=== PATIENT | male | born 1975 | race Caucasian/White ===

== ENCOUNTER 2017-02-21 00:58 | Emergency (ER) | payer OTHER ==
[2017-02-21] MEDS ORDERED: Diphtheria,Pertussis(Acell),Tetanus Vaccine 0.5 ML SDV IM ONE (01:26)
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
[2017-02-21] MEDS ORDERED: Bacitracin/Neomycin/Polymyxin B Oint 0.9 GM U/D Packet TOP ONE (02:08)
== END 2017-02-21 02:45 | disposition home or self-care (01) ==
LOC: LL.ED 00:58
DX: S61.011A Laceration without foreign body of right thumb without damage to nail, initial encounter (principal); S41.111A Laceration without foreign body of right upper arm, initial encounter; Z23 Encounter for immunization; X58.XXXA Exposure to other specified factors, initial encounter
CPT/HCPCS: 12002; 90471; 90715; 99282

== ENCOUNTER 2018-12-30 18:50 | Emergency (ER) | payer OTHER ==
[2018-12-30 19:22] LABS: CHLORIDE,CL 102 mmol/L (98-107); SODIUM,NA 140 mmol/L (136-145)
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
== END 2018-12-30 20:28 | disposition left against medical advice (07) ==
LOC: LL.ED 18:50
DX: S01.01XA Laceration without foreign body of scalp, initial encounter (principal); S01.312A Laceration without foreign body of left ear, initial encounter; S01.412A Laceration without foreign body of left cheek and temporomandibular area, initial encounter; F10.929 Alcohol use, unspecified with intoxication, unspecified; Y90.8 Blood alcohol level of 240 mg/100 ml or more; V28.4XXA Motorcycle driver injured in noncollision transport accident in traffic accident, initial encounter; Z53.20 Procedure and treatment not carried out because of patient's decision for unspecified reasons
CPT/HCPCS: 36415; 70450; 71045; 72125; 80053; 82150; 83605; 83690; 85025; 99285; G0480

== ENCOUNTER 2024-02-17 16:11 | Emergency (ER) | payer SELFPAY ==
[2024-02-17] MEDS: Bacitracin Oint 1 GM U/D Packet TOP ONE (16:47)
[2024-02-17] MEDS: Lidocaine 1% 5 ML VIAL INJECT ONE (16:47)
== END 2024-02-17 17:15 | disposition home or self-care (01) ==
LOC: LL.ED 16:11
DX: S61.211A Laceration without foreign body of left index finger without damage to nail, initial encounter (principal); F17.210 Nicotine dependence, cigarettes, uncomplicated; W26.8XXA Contact with other sharp object(s), not elsewhere classified, initial encounter
CPT/HCPCS: 12001; 99282; J3490